=== PATIENT | female | born 1955 | race Caucasian/White ===

== ENCOUNTER → 2020-11-01 | Outpatient (CLI) | payer MEDICARE ==
[2020-11-01 20:59] LABS: Basophils # (A) 0.05 X 10*3/uL (0.00-0.10); Basophils % (A) 0.9 %; Eosinophils # (A) 0.19 X 10*3/uL (0.04-0.35); Eosinophils % (A) 3.5 %; HCT 39.3 % (37.2-46.3); HGB 12.4 g/dL (12.0-15.0); Lymphocytes # (A) 1.39 X 10*3/uL (0.90-5.00); Lymphocytes % (A) 25.8 %; MCH 30.2 pg (27.0-32.0); MCHC 31.6 g/dL (32.0-37.0); MCV 95.9 fL (80.0-97.0); Mean Platelet Volume 10.7 fL (9.5-12.2); Monocytes # (A) 0.37 X 10*3/uL (0.20-1.00); Monocytes % (A) 6.9 %; Neutrophils # (A) 3.38 X 10*3/uL (1.80-7.70); Neutrophils % (A) 62.7 %; Platelet Count 186 X 10*3/uL (140-440); RDW 15.8 % (11.5-14.5); WBC 5.39 X 10*3/uL (4.50-10.00)
[2020-11-02 18:59] LABS: Albumin 4.4 g/dL (3.80-4.90); Total Protein 6.5 g/dL (6.2-8.2)
== END | disposition home or self-care (01) ==
LOC: LABWHC1 10:52
PROVIDERS: ATTEND Internal Medicine
DX: D64.9 Anemia, unspecified (principal); R94.5 Abnormal results of liver function studies
CPT/HCPCS: 36415; 82040; 84075; 84155; 84450; 84460; 85025

== ENCOUNTER → 2020-11-15 | Outpatient (CLI) | payer MEDICARE ==
--- NOTE | 2020-11-15 11:14 | XR ---
EXAMINATION TYPE: XR chest 2V DATE OF EXAM: 11/15/2020 CLINICAL HISTORY: R91.8 infiltrate. Recent Covid pneumonia. TECHNIQUE: Frontal and lateral view of the chest. COMPARISON: 12/08/2008 FINDINGS: The cardiomediastinal silhouette is within normal limits for size. Pulmonary vasculature i s normal. There is no focal air space opacity. There is a small opacity over the left lung base whic h may be related to nipple shadow. No pleural effusion. No pneumothorax seen. No acute displaced osse ous fracture. IMPRESSION: 1. No acute cardiopulmonary process. 2. Small opacity over the left lung base may be related to nipple shadow.
== END | disposition home or self-care (01) ==
LOC: RADXRMAIN 10:17
PROVIDERS: ATTEND Internal Medicine
DX: R91.8 Other nonspecific abnormal finding of lung field (principal); Z86.16 Personal history of COVID-19
CPT/HCPCS: 71046

== ENCOUNTER → 2020-12-21 | Outpatient (CLI) | payer MEDICARE ==
--- NOTE | 2020-12-21 14:37 | XR ---
EXAMINATION TYPE: XR chest 2V DATE OF EXAM: 12/21/2020 COMPARISON: NONE TECHNIQUE: PA and lateral views submitted. HISTORY: Abnormal previous x-ray FINDINGS: The lungs are clear and there is no pneumothorax, pleural effusion, or focal pneumonia. Heart size normal. There is mild hyperinflation correlate for asthma COPD. Hypertrophic change spine. IMPRESSION: 1. No acute process.
== END | disposition home or self-care (01) ==
LOC: RADXRMAIN 14:10
PROVIDERS: ATTEND Internal Medicine
DX: R91.8 Other nonspecific abnormal finding of lung field (principal)
CPT/HCPCS: 71046

== ENCOUNTER → 2021-08-11 | Outpatient (CLI) | payer MEDICARE ==
--- NOTE | 2021-08-14 08:17 | MM ---
Reason for exam: screening (asymptomatic). Last mammogram was performed 1 year and 1 month ago. History: Patient is postmenopausal. Family history of breast cancer in paternal aunt. Took hormonal contraceptives for 20 years. Physical Findings: A clinical breast exam by your physician is recommended on an annual basis and results should be correlated with mammographic findings. MG 3D Screening Mammo W/Cad Bilateral CC and MLO view(s) were taken. Prior study comparison: July 01, 2020, mammogram, performed at [facility]. May 21, 2018, mammogram, performed at [facility]. The breast tissue is heterogeneously dense. This may lower the sensitivity of mammography. Finding: There are indeterminate grouped/clustered calcifications in the upper outer quadrant, middle posterior position of the right breast. ASSESSMENT: Incomplete: need additional imaging evaluation, BI-RAD 0 RECOMMENDATION: Special view mammogram of the right breast. [facility] will attempt to contact patient to return for supplemental views.
== END | disposition home or self-care (01) ==
LOC: RADMAMWWP 10:50
PROVIDERS: ATTEND Obstetrics & Gynecology
DX: Z12.31 Encounter for screening mammogram for malignant neoplasm of breast (principal); Z80.3 Family history of malignant neoplasm of breast; Z78.0 Asymptomatic menopausal state
CPT/HCPCS: 77063; 77067

== ENCOUNTER → 2021-08-18 | Outpatient (CLI) | payer MEDICARE ==
--- NOTE | 2021-08-18 11:15 | MM ---
Reason for exam: additional evaluation requested from abnormal screening. Last mammogram was performed less than 1 month ago. History: Patient is postmenopausal. Family history of breast cancer in paternal aunt. Took hormonal contraceptives for 20 years. Physical Findings: Nurse Summary: 0.5cm nodule in the right breast at 6 o'clock (nurse db). MG 3D Work Up W/Cad RT CC with magnification, LM with magnification, and LM view(s) were taken of the right breast. Prior study comparison: August 11, 2021, bilateral MG 3d screening mammo w/cad. July 01, 2020, mammogram, performed at [facility]. The breast tissue is heterogeneously dense. This may lower the sensitivity of mammography. Finding: There are indeterminate grouped/clustered microcalcifications in the upper outer quadrant of the right breast requiring tissue biopsy. Ultrasound for palpable. These results were verbally communicated with the patient and result sheet given to the patient on 08/18/21. ASSESSMENT: Suspicious, BI-RAD 4 RECOMMENDATION: Ultrasound of the right breast. (for palpable) Stereotactic core biopsy of the right breast. Called Dr. Walker's office with mammographic findings. Patient will call back to schedule biposy once she decides on surgeon. PRELIMINARY REPORT CALLED AND FAXED TO DR. WALKER ON 08/18/21.
--- NOTE | 2021-08-18 11:15 | USB ---
Reason for exam: additional evaluation requested from abnormal screening. History: Patient is postmenopausal. Family history of breast cancer in paternal aunt. Took hormonal contraceptives for 20 years. US Breast Workup Limited RT Right limited breast ultrasound including focal area of concern, retroareolar and axilla demonstrates no cystic or solid lesion seen. These results were verbally communicated with the patient and result sheet given to the patient on 08/18/21. ASSESSMENT: Suspicious, BI-RAD 4 RECOMMENDATION: Stereotactic core biopsy of the right breast. (for calcifications) Called Dr. Walker's office with mammographic findings. Patient will call back to schedule biposy once she decides on surgeon. PRELIMINARY REPORT CALLED AND FAXED TO DR. WALKER ON 08/18/21.
== END | disposition home or self-care (01) ==
LOC: RADMAMWWP 09:36
PROVIDERS: ATTEND Obstetrics & Gynecology
DX: R92.8 Other abnormal and inconclusive findings on diagnostic imaging of breast (principal); Z78.0 Asymptomatic menopausal state; Z80.3 Family history of malignant neoplasm of breast
CPT/HCPCS: 77065; 76642; G0279; 77061

== ENCOUNTER → 2021-10-30 | Outpatient (CLI) | payer MEDICARE ==
--- NOTE | 2021-10-30 14:58 | BD ---
EXAMINATION TYPE: Axial Bone Density DATE OF EXAM: 10/30/2021 COMPARISON: NONE CLINICAL HISTORY: 66 years year old Female. ICD-10 CODE: Z13.820 ENCOUNTER FOR SCREENING FOR OSTEOPO ROSIS Height: 5 FT 4 IN Weight: 135 FRAX RISK QUESTIONS: Alcohol (3 or more units per day): NO Family History (Parent hip fracture): NO Glucocorticoids (More than 3mos): NO (Ex: prednisone, prednisolone, methylprednisolone, dexamethasone, and hydrocortisone). History of Fracture in Adulthood: YES Secondary Osteoporosis: 1. Type 1 Diabetes: NO 2. Hyperthyroidism: NO 3. Menopause before 45: NO 4. Malnutrition: NO 5. Chronic liver disease: NO Rheumatoid Arthritis: NO Current Tobacco Use: NO RISK FACTORS HISTORY OF: Surgery to Spine/Hip(right/left)/Wrist (right/left): NO Family History of Osteoporosis: YES Active: YES Diet low in dairy products/other sources of calcium: NO Postmenopausal woman: YES Take estrogen and/or progesterone medications: NO Lost more than 2 inches in height since high school: NO Frequent falls: NO Poor Health: NO Hyperparathyroidism: NO Adrenal Insufficiency: NO MEDICATIONS: Additional Medications: NONE Additional History: EXAM MEASUREMENTS: Bone mineral densitometry was performed using the [employer] System. Bone mineral density as measured about the Lumbar spine is: ----- L1-L4(G/cm2): 1.206 T Score Values are as follows: ----- L1: -1.1 ----- L2: 0.1 ----- L3: 0.6 ----- L4: 0.5 ----- L1-L4: 0.2 PREV DEDE MACOMB Bone mineral density about the R hip (g/cm2): 0.765 Bone mineral density about the L hip (g/cm2): 0.851 T Score values are as follows: -----R Neck: -2.0 -----L Neck: -1.3 -----R Total: -1.6 -----L Total: -1.0 PREV DEDE MACOMB FRAX%s: The graph provided illustrates a 11.0% chance for a major osteoporotic fx and a 1.9 % chance for the hips probability for fx in 10 years time. IMPRESSION: Osteopenia NOTE: T-SCORE=SD OF THE YOUNG ADULT MEAN.
== END | disposition home or self-care (01) ==
LOC: RADBDWWP 10:47
PROVIDERS: ATTEND Obstetrics & Gynecology
DX: M85.89 Other specified disorders of bone density and structure, multiple sites (principal)
CPT/HCPCS: 77080

== ENCOUNTER → 2023-10-16 | Outpatient (CLI) | payer MEDICARE ==
--- NOTE | 2023-10-16 11:48 | US ---
EXAMINATION TYPE: US liver DATE OF EXAM: 10/16/2023 COMPARISON: NONE CLINICAL INDICATION: Female, 67 years old with history of R74.8 ELEV ALKALINE PHOSPHATASE LEVEL; TECHNIQUE: Multiple sonographic images of the right upper quadrant are obtained. FINDINGS: EXAM MEASUREMENTS: Liver Length: 14.2 cm Gallbladder Wall: 0.18 cm CBD: 0.28 cm Right Kidney: 10.9 x 4.4 x 4.2 cm PRODUCT GRADER NOTES: Pancreas: Tail obscured by overlying bowel gas Liver: wnl Gallbladder: wnl Evidence for sonographic Rooney's sign: No CBD: wnl Right Kidney: wnl IMPRESSION: No acute ultrasound abnormality right upper quadrant. There is some limitation due to bowel gas.
--- NOTE | 2023-10-17 11:49 | CA ---
Stress Echo Report Jody Ernandez Age: 67 Gender: F : 1955 Exam Date: 10/16/2023 10:04 Exam Location: [facility] Ht (in): 64 Wt (lb): 160 Ordering Physician: Alex Mckeon DO Referring Physician: Alex Mckeon DO Room Service Runner: SERG, Technologist Procedure CPT: Indication: R06.09 DYSPNEA, ICD-9 Codes: Rhythm: Patient History: DIFFICULTY IN BREATHING, PALPITATIONS, HTN, HYPERCHOLESTEREMIA, FAMILY HX OF HEART DISEASE, Cardiac Medications: AMLODIPINE, VITAMIN Medications in past 24 hours: Contrast: Stress Results Protocol: Gurmeet Total dose(mL): Exercise Duration (min:sec): 7:[address] Depression (mm): Angina Score: Martell Score: METS: 8.7 Resting HR: 83 Resting BP: 142 / 66 Peak HR: 141 Peak BP: 203 / 33 Max Predicted HR: 151 93 % Max Predicted HR Target HR: 128 Double Product: [id number] Stress Summary: BP Response: Reason for Termination: MAX EXERTION/TARGET HR Cardiac Symptoms: EDIE ECG Analysis Resting ECG: Stress ECG: Arrhythmia: Echo Analysis Resting Echo: Peak Echo Analysis: MEASUREMENTS (Male/Female) Normal Values CONCLUSIONS Patient underwent exercise stress echo with a Gurmeet protocol treadmill stress test. Patient exercised into Stage 3 for a total of 7 minutes and 24 seconds reaching a total of 8.7 METS. Patient's maximum heart rate was 141 which represented 93 % age- predicted maximum heart rate. Stress EKG portion: At baseline patient's EKG showed mild 0.[address] depressions in the inferior and lateral leads. At peak exercise, EKG showed accentuation of baseline EKG abnormalities with 1.[address] depressions in the inferolateral leads. Stress echo portion: 2-D echocardiogram was performed in the parasternal long, personal short, apical 2 and apical four-chamber views at rest, peak exercise and in recovery. At baseline, echocardiogram showed left ventricular ejection fraction 55% without wall motion abnormalities. With peak exercise, echocardiogram shows improvement in left ventricular ejection fraction, increase contractility, decrease in left ventricular end systolic dimension without wall motion abnormalities consistent with a normal response to exercise. Conclusions: 1. Nonspecific stress EKG portion secondary baseline EKG abnormalities 2. Normal echo response to exercise without evidence of inducible ischemia. 3. Fair exercise capacity. Dr. Yogi Hahn DO (Electronically Signed) Final Date: 17 October 2023 11:48
== END | disposition home or self-care (01) ==
LOC: RADNMMAIN 09:00
PROVIDERS: ATTEND Internal Medicine
DX: R06.09 Other forms of dyspnea (principal); R74.8 Abnormal levels of other serum enzymes; R14.3 Flatulence
CPT/HCPCS: 76705; 93351